=== PATIENT | male | born 1940 | race Caucasian/White ===

== ENCOUNTER → 2017-10-15 16:14 | Outpatient (CLI) | payer MEDICARE, OTHER, SELFPAY ==
--- NOTE | 2017-10-15 16:23 | DI.MRI.S_ITS ---
PROCEDURE: MR LUMBAR SPINE WO CON INDICATIONS: LBP with Right LE Pain TECHNIQUE: Noncontrast sagittal T1 spin echo and T2 fast echo, sagittal STIR, axial T1 and T2 fast spin echo through the lumbar spine. In cases with scoliosis, additional coronal T2 fast spin echo may be performed. COMPARISON: None. FINDINGS: Image quality: Excellent. Alignment and Curvature: Grade 1 retrolisthesis of L1 on L2 and L2-L3 as well as L3 on L4. Bone Marrow: Marrow is of normal overall signal. Minimal anterior wedging of the T12 vertebral body which could be physiologic no associated marrow edema. No acute vertebral body compression fractures. Spinal Cord: Conus medullaris terminates at the L1 level. Visualized cord demonstrates normal signal and size. Paraspinous Soft Tissues: No paravertebral masses. Presumed subcentimeter T2 hyperintense left renal cysts although technically indeterminate. L1-L2: Broad-based posterior disc bulge and bilateral facet arthropathy. Mild canal narrowing. Mild left and severe right foraminal stenosis. L2-L3: Broad-based posterior disc bulge bilateral facet arthropathy. Moderate canal narrowing. Moderate left and severe right foraminal stenosis. L3-L4: Broad-based posterior disc bulge and bilateral facet arthropathy. Hypertrophy of the ligamentum flavum is also noted and there is moderate to severe canal stenosis. Moderate left foraminal narrowing. Severe right foraminal stenosis. L4-L5: Is broad-based posterior disc bulge bilateral facet arthropathy. Ligamentum flavum hypertrophy and there is moderate to severe canal stenosis. Moderate bilateral foraminal narrowing L5-S1: Broad-based posterior disc bulge and bilateral facet arthropathy. Mild to moderate canal narrowing. Severe left and mild right foraminal stenoses IMPRESSION: Grade 1 retrolisthesis of L1 on L2, L2 on L3 and L3 on L4. Wzjhefms-yc-[id number] L3-L4 and L4-L5 canal stenoses. Diffuse, bilateral foraminal stenoses as detailed above by spinal level. Dictated by: Giancarlo Schofield M.D. on 10/17/2017 at 9:32 Approved by: Giancarlo Schofield M.D. on 10/17/2017 at 9:49
--- NOTE | 2017-10-15 16:23 | DI.MRI.S_ITS ---
PROCEDURE: MR HIP RT WO CON INDICATIONS: Right groin pain with hip flexor weakness TECHNIQUE: Noncontrast coronal T1 spin echo and STIR through the bony pelvis. Coronal and axial T2 fast spin echo with fat saturation, sagittal T1 spin echo, and oblique axial T2 fast spin echo with fat saturation through the hip. COMPARISON: [facility], RG, XR HIP 2V RIGHT, 08/19/2017, 9:24. FINDINGS: Image quality: Excellent. Bones and joints: Bone marrow of the pelvic ring and proximal femurs show normal signal throughout. No intraosseous lesions or fractures. No avascular necrosis of the femoral heads. The visualized lower lumbar spine appears normally aligned. Tendons and ligaments: The gluteus medius and minimus tendons appear intact, without associated muscle atrophy. The nearby proximal iliotibial band also appears intact. The iliopsoas tendon appears intact, without adjacent bursal fluid collections or evidence for impingement syndrome. The origin of the hamstring tendon is intact at the ischial tuberosity, as well as the associated sacrotuberous ligament. The straight and reflected heads of the rectus femoris muscle origin appear intact, as well as the conjoint tendon. The ligamentum teres appears intact where visualized. Labrum and cartilage: The acetabular labrum appears intact in the absence of intra-articular contrast. Cartilage surface of the femoral head appears of mildly reduced thickness slightly greater on the right than the left. The alpha angle of the femur is within normal limits at less than 55 degrees. Soft tissues: Visualized muscles demonstrate normal bulk and internal signal. Quadratus femoris muscle demonstrates no internal edema to suggest ischiofemoral impingement. The proximal sciatic neurovascular bundle appears normal adjacent to the hamstring tendons. No free pelvic fluid. Bladder wall thickness is normal. Genitourinary structures and bowel loops appear normal where visualized. IMPRESSION: Mild bilateral hip joint osteoarthritis, slightly greater on the right than the left. No joint effusion or inflammatory edema related to degenerative osteoarthritis is found bilaterally. No impingement on the lumbar plexus is identified by inflammation or mass. Dictated by: Fady Nelson M.D. on 10/17/2017 at 11:51 Approved by: Fady Nelson M.D. on 10/17/2017 at 11:52
== END ==
PROVIDERS: PCP Family Medicine; Visit Provider Physical Medicine & Rehabilitation
DX: M54.5 Low back pain (principal); M79.604 Pain in right leg; M48.061 Spinal stenosis, lumbar region without neurogenic claudication
CPT/HCPCS: 72148; 73721

== ENCOUNTER 2017-11-06 14:20 | Outpatient (CLI) | payer MEDICARE, OTHER, SELFPAY ==
[2017-11-06] VITALS (9 sets, daily range): BP systolic 90–118; BP diastolic 57–76; PULSE 59–68; RESP 16–18; TEMP 36.8; O2SAT 95–99
--- NOTE | 2017-11-06 14:22 | DI.RAD.S_ITS ---
PROCEDURE: PAIN L/S TRANSFORAMINAL INJECT INDICATIONS: L2-3 TRANSFORAMINAL ES FINDINGS: Fluoroscopic spot filming was performed to verify placement of spinal needles at the L2-3 level(s), as labeled on the films. Appropriate location(s) of the needle tip(s) was confirmed by injection of iodinated contrast. IMPRESSION: Intraoperative imaging for injection of the right L2-3 level Dictated by: Grant Copeland M.D. on 11/06/2017 at 16:51 Approved by: Grant Copeland M.D. on 11/06/2017 at 16:52
--- NOTE | 2017-11-06 15:30 | PM.CN ---
History of Present Illness Chief complaint: LUMBAR REGION RADICULOPATHY PFSH Social History Smoking Status: Former smoker (Quit in the 's) Meds Home Medications Medication Instructions Recorded Confirmed Type aspirin 81 mg tablet,delayed 81 mg PO DAILY 10/03/17 10/03/17 History release atorvastatin 40 mg tablet 40 mg PO DAILY 10/03/17 10/03/17 History calcium phosphate-vitamin D2 100 tab PO tab 10/03/17 10/03/17 History mg calcium-100 unit chewable tablet celecoxib 200 mg capsule 200 mg PO DAILY 10/03/17 10/03/17 History cetirizine 10 mg capsule PO cap 10/03/17 10/03/17 History diclofenac 1 % topical gel 2 gram TOP QID 10/03/17 10/03/17 History fluticasone 50 mcg/actuation nasal 2 spray NASAL DAILY 10/03/17 10/03/17 History spray,suspension lisinopril 40 mg tablet 40 mg PO DAILY 10/03/17 10/03/17 History metoprolol succinate ER 25 mg 25 mg PO DAILY 10/03/17 10/03/17 History tablet,extended release 24 hr omeprazole 20 mg capsule,delayed 20 mg PO BID cap 10/03/17 10/03/17 History release sertraline 25 mg tablet 25 mg PO DAILY 10/03/17 10/03/17 History tolterodine ER 4 mg 4 mg PO DAILY 10/03/17 10/03/17 History capsule,extended release 24 hr triamcinolone acetonide 0.1 % 1 applictn TOP DAILY 10/03/17 10/03/17 History lotion warfarin 5 mg tablet 7.5 mg PO DAILY tab 10/03/17 10/03/17 History Allergies Allergy/AdvReac Type Severity Reaction Status Date / Time famotidine [From Pepcid] AdvReac Depression Verified 10/03/17 15:12 oxycodone AdvReac Hallucinati Verified 10/03/17 15:12 ng
[2017-11-06] MEDS: MIDAZOLAM 5 MG/5 ML VIAL IV (15:52)
[2017-11-06] MEDS: methylPREDNISolone acetate 80 MG/ML VIAL INJ (16:00)
[2017-11-06] MEDS: IOPAMIDOL 15 ML VIAL 3 ML INJ (16:00)
[2017-11-06] MEDS: BUPIVACAINE 0.25% (PF) VIAL 2 ML INJ (16:00)
[2017-11-06] MEDS: DEXAMETHASONE 10 MG/ML VIAL 20 MG INJ (16:00)
--- NOTE | 2017-11-06 16:12 | P.PCN_ITS ---
Procedures Date/Time Date of procedure: 11/06/17 Time of procedure: 16:12 General Procedure description: PREOP DIAGNOSIS 1. FORMAINAL STENOSIS WITH LE SYMPTOMS, POST OP DIAGNOSIS 1. FORMAINAL STENOSIS WITH LE SYMPTOMS, PROCEDURES 1. FLUOROSCOPICALLY GUIDED CONTRAST CONTROLLED TRANSFORAMINAL EPIDURAL STEROID INJECTION - RIGHT L2/3 TFESI PHYSICIAN: Valentín Baca, DO INDICATIONS [place] is referred by Dr. Infante for treatment of Foraminal Stenosis with Right LE Symptoms FINDINGS Foraminal Nerve Root Compression secondary to disc disease and facet hypertrophy DESCRIPTION OF PROCEDURE Following denial of allergy and review of potential side effects and complications, including, but not necessarily limited to, infection, allergic reaction, local tissue breakdown, stroke, temporary or permanent nerve injury, paralysis, and possible , the patient indicated that the patient understood and agreed to proceed. An informed consent document was signed by the patient, witnessed by a nurse, and placed in the patient's chart. Additionally, other treatment options including medications, modalities, and physical therapy were reviewed with the patient. After review of previous anaesthesic history and IV conscious sedation the patient was deemed safe to proceed with todays procedure with IV conscious sedation as ASA class II designation. Safety time-out was performed to confirm patient ID, procedure to be performed and site of procedure. IV sedation was accomplished with a combination of 3mg was administered by the RN after DO order , titrated to patient comfort during the course of the procedure while the patient remained responsive to all verbal commands In the prone position following sterile prep and drape of the lumbar region, the right L2/3 posterior neuroforamen was identified fluoroscopically. The skin was anesthetized via a 25-gauge 1.5-inch needle with 1% lidocaine solution. At this point, a 25-gauge 3.5-inch spinal needle was atraumatically introduced and advanced under fluoroscopic guidance through the posterior right L2/3 neuroforamen to approximately the anterior aspect of the canal. Depth was confirmed on lateral view. Following negative aspiration, injection of approximately 1.5 cc of Isovue 200 under live fluoroscopy in the AP view confirmed excellent flow along the nerve root, into the epidural space without vascular or intrathecal uptake observed Radiological data, including multiple fluoroscopic views of the lumbosacral spine, reveal a spinal needle at the right L2/3 posterior neuroforamen. Subsequent views show flow of contrast material flowing superiorly and inferiorly along the nerve root confirming epidural flow. Subsequently, a test dose of 1.5 cc of 1% lidocaine solution was administered and patient was observed for signs or symptoms of complications, including abdominal pain, shortness of breath, bilateral upper or lower extremity weakness , nausea and vomiting, prior to steroid injection. At this point, a total of 3 cc or 20 mg of dexamethasone and 80mg Depo medrol was injected without incident. The procedure tolerated the procedure well without signs or symptoms of complications prior to transfer to the recovery area continued monitoring without incident.The patient was then transferred to the recovery area where they were observed for an appropriate time after the injection. The patient reported a VAS score of 7 prior to the procedure and a post- procedure VAS of 0. Total Fluoroscopy Time: 17.3 seconds Total Conscious Sedation Time: 24min POST OP INSTRUCTIONS The patient was provided a Pain Log to continue to record their response to the target-specific procedure prior to follow-up visit with their referring physician. Additionally, specific post-injection care instructions and a contact number to our office were provided if concerns arise regarding possible complications associated with the procedure are suspected. Valentín Baca DO Complications: none
== END 2017-11-06 16:43 | disposition home or self-care (01) ==
PROVIDERS: PCP Family Medicine; Visit Provider Physical Medicine & Rehabilitation
DX: M48.061 Spinal stenosis, lumbar region without neurogenic claudication (principal); M51.16 Intervertebral disc disorders with radiculopathy, lumbar region
CPT/HCPCS: 64483; 99152; J1040; J1100; J2250

== ENCOUNTER 2018-06-05 10:24 | Day surgery (SDC) | payer MEDICARE, OTHER, SELFPAY ==
[2018-05-01 09:25] VITALS: BMI 39.7
[2018-06-05] VITALS (7 sets, daily range): BP systolic 111–145; BP diastolic 55–90; PULSE 55–68; RESP 11–96; TEMP 36.8–37; O2SAT 97–99; BMI 39.7
[2018-06-05] MEDS: LACTATED RINGERS 1,000 ML 42 ML IV (12:16)
[2018-06-05] MEDS: CEFAZOLIN 2 GM/100 ML FROZ.PIGGY IV (13:40)
--- NOTE | 2018-06-05 14:07 | SUR.OPER ---
Supine on padded OR bed, head on pillow,left arm drapped free on black arm table, right arm secured on padded arm boards at <90 degrees abduction, legs uncrossed, safety belt at thigh, tape over blanket over lower legs.
[2018-06-05] MEDS: BUPIVACAINE 0.5% W/ EPI (PF) VIAL 30 ML INJ (14:18)
--- NOTE | 2018-06-05 14:48 | PM.OP.1 ---
Operative Date/Time/Diagnoses Date of procedure: 06/05/18 Time of procedure: 14:00 Pre-op diagnosis: Right basal thumb arthritis Post-op diagnosis: same Procedure & Clinicians Procedure: Right basal thumb arthroplasty Same procedure as scheduled: Yes Indications: Basal thumb arthritis Surgeon: Talib Hayes Human Services Assistant: Zarina Henry Anesthesia Type: General and Peripheral nerve block Operative Notes Closure Type: primary Specimen(s): none sent Applied: implant(s) Estimated Blood Loss (mL): 0 Tourniquet time (min): 40 Procedure in detail: On date of service, the patient was met in the holding area. The operative site was signed and witnessed by the OR staff. The surgery was once again discussed with patient, and any remaining questions Were answered fully. Patient was taken back to the operating theater and placed on the operating table in a supine position. Great care was taken to ensure that all bony prominences were properly padded. A well-padded tourniquet was placed up along the upper extremity. A timeout was performed verifying patient's name, procedure, and operative site. The arm was prepped and draped in the normal sterile fashion. An Esmarch was used to exsanguinate the limb and the tourniquet was turned up to 250 mm mercury. A 15 blade was used to incise the skin only in a dorsal radial position. Pickups and tenotomy 3 used to dissect down through the fascial tissue. Great care was taken to ensure that the branches off the superficial radial nerve root identified and protected. Next, an interval was made between EPB and APL. The recurrent branch of the radial artery was identified and protected. The capsular tissues surrounding the basal joints was opened and released around the trapezium and a 360? fashion. This gave us good visualization of the basal joint as well as the trapezial scaphoid joint. Significant arthritis at the basal joints but no sign of any arthritis at the trapezial scaphoid joint. Next the trapezium was removed as well as any potential osteophytes. The wound was then copiously irrigated to remove any remaining bony fragments. 2 drill holes were made. One in the base of the first metacarpal and one in the base of the second metacarpal. C-arm was brought in to verify positioning of the K wires. A strand of labral tape was folded back Onto itself. The 2 strands of labral tape as well as the strip of FCR was secured in the bone tunnel in the second metacarpal with a screw. This was then brought over to the first metacarpal and anchored into the metacarpal using the swivel lock screw. This provided a secure suspension plasty of the thumb, as well as recreating the beak ligament. The wound was irrigated once again. A thick capsular closure was performed using 2-0 Ethibond. The rest of the wound was closed in a layered fashion. The hand was then cleaned, dried, and dressed. Patient was placed into a thumb spica splint. Patient was taken back to the PACU in stable condition. Complications: none Condition: stable Disposition: PACU Plan for aftercare: Patient will be in a splint for 2 weeks. After 2 weeks patient can be converted to a removable brace. No restrictions to wrist or basal thumb range of motion at 2 weeks.
[2018-06-05] MEDS: HYDROCODONE/ACET 5/325 TABLET 1 TAB PO (15:10)
--- NOTE | 2018-06-05 16:07 | SUR.PHASEII ---
brought in, d/c instructions discussed, both voiced an understanding, dressing to r hand c/d/i.. pt dressed when ready and left when ready and in stable condition.
== END 2018-06-05 16:00 | disposition home or self-care (01) ==
PROVIDERS: PCP Family Medicine; Visit Provider Orthopaedic Surgery
PROC: (CPT 26535; principal; 2018-06-05 13:00)
DX: M18.10 Unilateral primary osteoarthritis of first carpometacarpal joint, unspecified hand (principal); G47.33 Obstructive sleep apnea (adult) (pediatric); E66.01 Morbid (severe) obesity due to excess calories; I10 Essential (primary) hypertension; Z68.39 Body mass index [BMI] 39.0-39.9, adult
CPT/HCPCS: 25447; 25310; J0690; J2250; J2704

== ENCOUNTER → 2019-05-26 14:34 | Outpatient (CLI) | payer MEDICARE, OTHER, SELFPAY ==
--- NOTE | 2019-05-26 14:38 | DI.RAD.S_ITS ---
PROCEDURE: XR HIP W PEL IF DONE LT MIN 4V INDICATIONS: left hip pain TECHNIQUE: AP pelvis with lateral view(s) of the bilateral hip(s). COMPARISON: [facility], MR, MR HIP RT WO CON, 10/15/2017, 16:39. [facility], RG, XR HIP 2V RIGHT, 08/19/2017, 9:24. FINDINGS: Bones: No acute fractures or dislocations. Degenerative changes of the bilateral hip and lower lumbar spine. Small subchondral lucency adjacent to the right greater trochanter which was suggested on comparison MRI. This is likely chronic in etiology. Pelvic ring appears intact. No suspicious bony lesions. Soft tissues: The visualized bowel gas pattern is normal. No suspicious soft tissue calcifications. IMPRESSION: Bilateral hip osteoarthrosis. Lower lumbar spondylosis. Dictated by: Martin Sam M.D. on 05/26/2019 at 18:09 Approved by: Martin Sam M.D. on 05/26/2019 at 18:13
== END ==
PROVIDERS: PCP Family Medicine; Referring Provider Physical Medicine & Rehabilitation; Visit Provider Physical Medicine & Rehabilitation
DX: M25.552 Pain in left hip (principal); M16.0 Bilateral primary osteoarthritis of hip; M47.816 Spondylosis without myelopathy or radiculopathy, lumbar region
CPT/HCPCS: 73522

== ENCOUNTER → 2019-06-03 11:42 | Outpatient (CLI) | payer MEDICARE, OTHER, SELFPAY ==
--- NOTE | 2019-06-03 | DI.CT.S_ITS ---
PROCEDURE: CT SINUS SCREEN WO CON INDICATIONS: Acute recurrent sinusitis TECHNIQUE: Noncontrast 3.0 mm axial images acquired from the frontal sinuses to the mid-sella, with coronal and sagittal reformats. For radiation dose reduction, the following was used: automated exposure control, adjustment of mA and/or kV according to patient size. COMPARISON: None. FINDINGS: Image quality: Excellent. Maxillary Sinuses: No bony remodeling or destruction. Sinuses are clear. Ethmoid Air Cells: No bony remodeling or destruction. Sinuses are clear. Sphenoid Sinuses: No bony remodeling or destruction. Sinuses are clear. Frontal Sinuses: No bony remodeling or destruction. Sinuses are clear. Ostiomeatal Complexes: Ostiomeatal complexes are patent. No Sondra cells. Miscellaneous: Visualized intra-orbital contents are normal. There is a small right-sided liane bullosa. There is mild rightward nasal septal deviation. IMPRESSION: No significant active paranasal sinus disease is seen. Mild rightward nasal septal deviation. Dictated by: Matias Ordaz M.D. on 06/03/2019 at 12:21 Approved by: Matias Ordaz M.D. on 06/03/2019 at 12:22
== END ==
PROVIDERS: PCP Family Medicine; Referring Provider Otolaryngology; Visit Provider Otolaryngology
DX: J01.91 Acute recurrent sinusitis, unspecified (principal); J32.8 Other chronic sinusitis; J34.2 Deviated nasal septum; M54.17 Radiculopathy, lumbosacral region; M54.16 Radiculopathy, lumbar region; M51.9 Unspecified thoracic, thoracolumbar and lumbosacral intervertebral disc disorder; M99.89 Other biomechanical lesions of abdomen and other regions
CPT/HCPCS: 70486; 99213

== ENCOUNTER → 2019-08-31 11:36 | Outpatient (CLI) | payer MEDICARE, OTHER, SELFPAY ==
[2019-09-01 11:06] LABS: COVID19 Sendout NOT DETECTED
== END ==
PROVIDERS: PCP Family Medicine; Visit Provider Registered Nurse
DX: Z01.818 Encounter for other preprocedural examination (principal)
CPT/HCPCS: 87635

== ENCOUNTER 2019-09-03 12:04 | Outpatient (CLI) | payer MEDICARE, OTHER, SELFPAY ==
[2019-09-03] VITALS (9 sets, daily range): BP systolic 111–159; BP diastolic 55–89; PULSE 59–98; RESP 14–16; TEMP 36.8; O2SAT 95–100
--- NOTE | 2019-09-03 12:05 | DI.RAD.S_ITS ---
PROCEDURE: PAIN L/S TRANSFORAMINAL INJECT INDICATIONS: SPONDYLOSIS FINDINGS: Fluoroscopic spot filming was performed to verify placement of spinal needles at the left L3-4 neural foramen level(s), as labeled on the films. Appropriate location(s) of the needle tip(s) was confirmed by injection of iodinated contrast. IMPRESSION: Successful left-sided L3-4 neural foramen needle tip localization for epidural steroid injection. Dictated by: Fady Nelson M.D. on 09/03/2019 at 15:12 Approved by: Fady Nelson M.D. on 09/03/2019 at 15:12
[2019-09-03] MEDS: BETAMETHASONE 30 MG/5 ML MDV 6 MG INJ (13:37)
[2019-09-03] MEDS: IOPAMIDOL 15 ML VIAL 3 ML INJ (13:38)
[2019-09-03] MEDS: DEXAMETHASONE 10 MG/ML VIAL 20 MG INJ (13:39)
[2019-09-03] MEDS: BUPIVACAINE 0.25% (PF) VIAL 2 ML INJ (13:39)
[2019-09-03] MEDS: MIDAZOLAM 5 MG/5 ML VIAL IV (13:40)
--- NOTE | 2019-09-03 13:45 | PM.PROC.1 ---
Procedures Date/Time Date of procedure: 09/03/19 Time of procedure: 13:45 General Procedure description: PROVIDER: Valentín Baca DO Operative Note PREOP DIAGNOSIS 1. FORAMINAL STENOSIS WITH LE SYMPTOMS, POST OP DIAGNOSIS 1. FORAMINAL STENOSIS WITH LE SYMPTOMS, PROCEDURES 1. FLUOROSCOPICALLY GUIDED CONTRAST CONTROLLED TRANSFORAMINAL EPIDURAL STEROID INJECTION - LEFT L3/4 TFESI SURGEON: Valentín Baca DO INDICATIONS [place] is referred by Dr. Mar for treatment of Foraminal Stenosis with left LE Symptoms FINDINGS Foraminal Nerve Root Compression secondary to disc disease and facet hypertrophy DESCRIPTION OF PROCEDURE Following review of allergy and review of potential side effects and complications, including, but not necessarily limited to, infection, allergic reaction, local tissue breakdown, stroke, temporary or permanent nerve injury, paralysis, and possible , the patient indicated that the patient understood and agreed to proceed. An informed consent document was signed by the patient, witnessed by a nurse, and placed in the patient's chart. Additionally, other treatment options including medications, modalities, and physical therapy were reviewed with the patient. After review of previous anaesthesic history and IV conscious sedation the patient was deemed safe to proceed with todays procedure with IV conscious sedation as ASA class II designation. Safety time-out was performed to confirm patient ID, procedure to be performed and site of procedure. IV sedation was accomplished with a combination of 2mg of Versed was administered by the RN after DO order, titrated to patient comfort during the course of the procedure while the patient remained responsive to all verbal commands In the prone position following sterile prep and drape of the lumbar region, the left L3/4 posterior neuroforamen was identified fluoroscopically. The skin was anesthetized via a 25-gauge 1.5-inch needle with 1% lidocaine solution. At this point, a 25-gauge 3.5-inch spinal needle was atraumatically introduced and advanced under fluoroscopic guidance through the posterior left L3/4 neuroforamen to approximately the anterior aspect of the canal. Depth was confirmed on lateral view. Following negative aspiration, injection of approximately 1.5 cc of Isovue 200 under live fluoroscopy in the AP view confirmed excellent flow along the nerve root, into the epidural space without vascular or intrathecal uptake observed Radiological data, including multiple fluoroscopic views of the lumbosacral spine, reveal a spinal needle at the left L3/4 posterior neuroforamen. Subsequent views show flow of contrast material flowing superiorly and inferiorly along the nerve root confirming epidural flow. Subsequently, a test dose of 1.5 cc of 1% lidocaine solution was administered and patient was observed for two minutes for signs or symptoms of complications, including abdominal pain, shortness of breath, bilateral upper or lower extremity weakness, nausea and vomiting, prior to steroid injection. At this point, a total of 3cc or 20mg of dexamethasone and 6mg betamethasone was injected without incident. The patient tolerated the procedure well without signs or symptoms of complications prior to transfer to the recovery area continued monitoring without incident. The patient was then transferred to the recovery area where they were observed for an appropriate time after the injection. The patient reported a VAS score of 7 prior to the procedure and a post-procedure VAS of 0. Total Fluoroscopy Time: 10 seconds Total Conscious Sedation Time: 24min POST OP INSTRUCTIONS The patient was provided a Pain Log to continue to record their response to the target-specific procedure prior to follow-up visit with their referring physician. Additionally, specific post-injection care instructions and a contact number to our office were provided if concerns arise regarding possible complications associated with the procedure are suspected. Valentín Baca, Complications: none
--- NOTE | 2019-09-03 13:51 | PC.NURSE ---
able transfer from table to wc safely, transported to post procedure room, report to chata carney
== END 2019-09-03 14:15 | disposition home or self-care (01) ==
LOC: RAD 12:04
PROVIDERS: PCP Family Medicine; Referring Provider Physical Medicine & Rehabilitation; Visit Provider Physical Medicine & Rehabilitation
DX: M48.061 Spinal stenosis, lumbar region without neurogenic claudication (principal); M51.16 Intervertebral disc disorders with radiculopathy, lumbar region
CPT/HCPCS: 64483; 99152; J0702; J1100; J2250; J3010

== ENCOUNTER → 2020-06-20 13:04 | Outpatient (CLI) | payer MEDICARE, OTHER, SELFPAY ==
[2020-06-20 15:59] LABS: COVID19 -Nasal RAPID Negative (Negative)
== END ==
PROVIDERS: PCP Family Medicine; Visit Provider Physical Medicine & Rehabilitation
DX: Z20.822 Contact with and (suspected) exposure to COVID-19 (principal)
CPT/HCPCS: 87635; C9803

== ENCOUNTER 2020-06-21 12:18 | Outpatient (CLI) | payer MEDICARE, OTHER, SELFPAY ==
[2020-06-21] VITALS (9 sets, daily range): BP systolic 113–163; BP diastolic 55–77; PULSE 58–65; RESP 15–24; TEMP 36.8; O2SAT 93–96
--- NOTE | 2020-06-21 12:22 | DI.RAD.S_ITS ---
PROCEDURE: PAIN L/S TRANSFORAM INJECT MILDRED COMPARISON: None. INDICATIONS: SPONDYLOSIS FINDINGS: A single needle tip is localized over the L3-4 right-sided neural foramen for transforaminal epidural injection. IMPRESSION: Successful needle tip localization for right-sided L3-4 epidural steroid injection. Dictated by: Fady Nelson M.D. on 06/21/2020 at 13:45 Approved by: Fady Nelson M.D. on 06/21/2020 at 13:46
[2020-06-21] MEDS: fentaNYL 100 MCG/2 ML INJ 50 MCG IV (13:10)
[2020-06-21] MEDS: IOPAMIDOL 15 ML VIAL 3 ML INJ (13:15)
[2020-06-21] MEDS: BUPIVACAINE 0.25% (PF) VIAL 2 ML INJ (13:15)
[2020-06-21] MEDS: MIDAZOLAM 5 MG/5 ML VIAL IV (13:15)
[2020-06-21] MEDS: BETAMETHASONE 30 MG/5 ML MDV 12 MG INJ (13:15)
[2020-06-21] MEDS: DEXAMETHASONE 10 MG/ML VIAL 20 MG INJ (13:19)
--- NOTE | 2020-06-21 13:30 | P.PCN_ITS ---
Date/Time/Diagnoses Date of procedure: 06/21/20 Time of procedure: 13:30 Pre-procedure diagnosis: 1. FORAMINAL STENOSIS WITH LE SYMPTOMS Post-procedure diagnosis: same Procedure Notes Procedure: 1. FLUOROSCOPICALLY GUIDED CONTRAST CONTROLLED TRANSFORAMINAL EPIDURAL STEROID INJECTION - BILATERAL L3/4 TFESI Indications: Aramis is referred by Dr. Mar for treatment of Foraminal Stenosis with bilateral LE Symptoms Physician: Valentín Baca Total Fluoroscopy time (seconds): 16 Total sedation minutes: 13 Complications: none Procedure in detail & Post-procedure care: FINDINGS Foraminal Nerve Root Compression secondary to disc disease and facet hypertrophy DESCRIPTION OF PROCEDURE Following review of allergy and review of potential side effects and complications, including, but not necessarily limited to, infection, allergic reaction, local tissue breakdown, stroke, temporary or permanent nerve injury, paralysis, and possible , the patient indicated that the patient understood and agreed to proceed. An informed consent document was signed by the patient, witnessed by a nurse, and placed in the patient's chart. Additionally, other treatment options including medications, modalities, and physical therapy were reviewed with the patient. After review of previous anaesthesic history and IV conscious sedation the patient was deemed safe to proceed with today?s procedure with IV conscious sedation as ASA class II designation. Safety time-out was performed to confirm patient ID, procedure to be performed and site of procedure. IV sedation was accomplished with a combination of 3mg of Versed and 50mcg of Fentanyl was administered by the RN after DO order, titrated to patient comfort during the course of the procedure while the patient remained responsive to all verbal commands In the prone position following sterile prep and drape of the lumbar region, the right L5/S1 posterior neuroforamen was identified fluoroscopically. The skin was anesthetized via a 25-gauge 1.5-inch needle with 1% lidocaine solution. At this point, a 25-gauge 3.5-inch spinal needle was atraumatically introduced and advanced under fluoroscopic guidance through the posterior right L5/S1 neuroforamen to approximately the anterior aspect of the canal. Depth was confirmed on lateral view. Following negative aspiration, injection of approximately 1.5cc of Isovue 200 under live fluoroscopy in the AP view confi rmed excellent flow along the nerve root, into the epidural space without vascular or intrathecal uptake observed Radiological data, including multiple fluoroscopic views of the lumbosacral spine, reveal a spinal needle at the L5/S1 posterior neuroforamen. Subsequent views show flow of contrast material flowing superiorly and inferiorly along the nerve root confirming epidural flow. Subsequently, a test dose of 1.5cc of 1% lidocaine solution was administered and patient was observed for two minutes for signs or symptoms of complications, including abdominal pain, shortness of breath, bilateral upper or lower extremity weakness, nausea and vomiting, prior to steroid injection. At this point, a total of 3cc or 20mg of dexamethasone and 6mg betamethasone was injected without incident. Attention was then refocused to the left L5/S1 level where the identical procedure was replicated. The procedure tolerated the procedure well without signs or symptoms of complications prior to transfer to the recovery area continued monitoring without incident. The patient was then transferred to the recovery area where they were observed for an appropriate time after the injection. The patient reported a VAS score of 7 prior to the procedure and a post-procedure VAS of 0. POST OP INSTRUCTIONS The patient was provided a Pain Log to continue to record their response to the target-specific procedure prior to follow-up visit with their referring physician. Additionally, specific post-injection care instructions and a contact number to our office were provided if concerns arise regarding possible complications associated with the procedure are suspected.
--- NOTE | 2020-06-21 17:08 | PC.NURSE ---
Pt waiting for discharge for extended amount of time. Vital sign and discharge criteria met at 1355 aside from BLE strength and ability to ambulate. Dr Baca at chairside multiple times to assist in attempts to stand. Pt too weak from 1355 until discharge at 1600. Per pt and , walkers and ability to move around at home is available. Pt states this is his baseline weakness and difficulty of standing up from sitting position. Pt able to use wheelchair as walker with Dr Baca. Able to void in bathroom prior to DC. in car and pt safe for discharge.
== END 2020-06-21 16:00 | disposition home or self-care (01) ==
LOC: RAD 12:22
PROVIDERS: PCP Family Medicine; Referring Provider Physical Medicine & Rehabilitation; Visit Provider Physical Medicine & Rehabilitation
DX: M48.061 Spinal stenosis, lumbar region without neurogenic claudication (principal); M51.16 Intervertebral disc disorders with radiculopathy, lumbar region
CPT/HCPCS: 64483; 99152; J0702; J1100; J2250; J3010

== ENCOUNTER → 2020-07-29 13:57 | Outpatient (CLI) | payer MEDICARE, OTHER, SELFPAY ==
--- NOTE | 2020-07-29 13:59 | DI.RAD.S_ITS ---
PROCEDURE: XR LUMBAR SPINE MIN 4V INDICATIONS: BACK PAIN TECHNIQUE: 5 views of the lumbar spine were acquired, including bilateral oblique views COMPARISON: None. FINDINGS: Bones: 5 nonrib-bearing vertebrae are present. There is moderate leftward curvature of the lumbar spine midportion. Pars interarticularis are not well seen. Multilevel disc space narrowing and endplate osteophyte formation. Multilevel facet hypertrophy throughout the mid and lower lumbar spine. Mild kyphosis within the lower thoracic spine. Mild grade 1 retrolisthesis of L1 on L2, L2 on L3, and L3 on L4. No vertebral body compression fractures. No suspicious bony lesions. Soft tissues: Overlying bowel gas pattern is normal. No suspicious soft tissue calcifications. IMPRESSION: 1. Multilevel degenerative disc and facet disease. 2. No definite pars defects. 3. No acute fracture. No osseous lesion. If symptoms and/or clinical suspicion for pathology persist, further assessment with repeat, or advanced imaging (e.g., CT, MRI, or bone scan) may be helpful for further assessment. Dictated by: Violetta Cloud M.D. on 07/29/2020 at 16:55 Approved by: Violetta Cloud M.D. on 07/29/2020 at 16:56
== END ==
PROVIDERS: PCP Family Medicine; Referring Provider Physical Medicine & Rehabilitation; Visit Provider Physical Medicine & Rehabilitation
DX: M51.16 Intervertebral disc disorders with radiculopathy, lumbar region (principal); M25.859 Other specified joint disorders, unspecified hip
CPT/HCPCS: 72110; 99213

== ENCOUNTER → 2021-01-16 13:25 | Outpatient (CLI) | payer MEDICARE, OTHER, SELFPAY ==
--- NOTE | 2021-01-16 | DI.RAD.S_ITS ---
PROCEDURE: XR KNEE LT 3V INDICATIONS: Pain in left knee TECHNIQUE: 3 views of the knee were acquired. COMPARISON: None. FINDINGS: Bones: No fractures or dislocations. Moderate tricompartmental osteoarthritis is seen more prominent in medial femoral tibial compartment. No suspicious bony lesions. Soft tissues: No joint effusion. No suspicious soft tissue calcifications. IMPRESSION: Moderate tricompartmental osteoarthritis more prominent in medial femoral tibial compartment. No fracture or dislocation. No significant joint effusion. Dictated by: Paul Ricardo M.D. on 01/16/2021 at 14:53 Approved by: Paul Ricardo M.D. on 01/16/2021 at 14:54
== END ==
PROVIDERS: PCP Internal Medicine; Referring Provider Physician Assistant; Visit Provider Physician Assistant
DX: M25.562 Pain in left knee (principal); M17.12 Unilateral primary osteoarthritis, left knee
CPT/HCPCS: 73562

== ENCOUNTER → 2021-05-23 12:24 | Outpatient (CLI) | payer MEDICARE, OTHER, SELFPAY ==
--- NOTE | 2021-05-23 | DI.RAD.S_ITS ---
PROCEDURE: XR ABDOMEN MIN 2V INDICATIONS: Abd Pain/Constipation/Diarrhea TECHNIQUE: 2 views of the abdomen were acquired. COMPARISON: None. FINDINGS: Surgical changes and devices: Median sternotomy. Bowel: No pneumoperitoneum. Moderate diffuse colonic stool. The bowel gas pattern is otherwise normal. Soft tissues: No masses; visualized solid organ contours appear normal in size. No suspicious abdominal calcifications. Bones: No suspicious bony abnormalities. IMPRESSION: Moderate diffuse colonic stool. No evidence of bowel obstruction. Dictated by: Violetta Cloud M.D. on 05/23/2021 at 14:12 Approved by: Violetta Cloud M.D. on 05/23/2021 at 14:12
== END ==
PROVIDERS: PCP Internal Medicine; Referring Provider Internal Medicine Gastroenterology; Visit Provider Internal Medicine Gastroenterology
DX: R10.9 Unspecified abdominal pain (principal); K59.00 Constipation, unspecified; R19.7 Diarrhea, unspecified; R19.8 Other specified symptoms and signs involving the digestive system and abdomen
CPT/HCPCS: 74019

== ENCOUNTER → 2022-05-03 09:52 | Outpatient (CLI) | payer MEDICARE, OTHER, SELFPAY ==
--- NOTE | 2022-05-03 | DI.RAD.S_ITS ---
PROCEDURE: FL BARIUM SWALLOW W SPEECH INDICATIONS: DYSPHAGIA COMPARISON: None. TECHNIQUE: Examination was conducted in conjunction with speech pathology per standard protocol. In the lateral projection, filming was performed of the patient swallowing. AP projection filming may also be performed with patient swallowing. COMPARISON: FINDINGS: Function: The oral preparatory phase appears normal, with proper containment. The subsequent oral propulsive phase, pharyngeal phase, and esophageal phase of swallowing also appear normal with all proffered substances. No laryngotracheal penetration or aspiration. There is vallecular pooling throughout the exam that clears with repeated swallowing. Imaging of the esophagus demonstrates residual contrast material within the esophagus versus gastroesophageal reflux. Some tertiary contractions were noted. A calibrated barium tablet passes readily through the esophagus into the stomach. Morphology: No cricopharyngeal bar is identified. No cervical esophageal webs. No Zenker's diverticulum. No strictures. IMPRESSION: No laryngeal tracheal penetration or aspiration. Contrast material imaged within the esophagus may be secondary to dysmotility or gastroesophageal reflux. Of note, please see independent report generated by the speech pathologist for further detailed specifics and characterization of the modified speech swallow study. Approved by: Rakesh Alberto M.D. on 05/03/2022 at 13:32
--- NOTE | 2022-05-03 11:30 | ST.SWALLOW ---
Visit Care Team Role Provider Type William Davis MD Primary Care Provider Non-Staff Specialty: Internal Medicine Address: [address] [place] [address], [id number] Email: Placido Souza DO Attending Provider Non-Staff Referring Provider Specialty: Family Practice Address: [address] [place] [address], [id number] Email: Modified Barium Swallow Study PAYING TELLER Modified Barium Swallow Study Start: 05/03/22 17:39 Freq: Status: Active Protocol: Document 05/03/22 17:39 ZS (Rec: 05/03/22 17:42 ZS [id number]) Modified Barium Swallow Study Total Time Visit Start Time 10:30 Visit Stop Time 11:00 Total Visit Minutes 30 Visit Information Visit Number Initial Evaluation Setting Setting Outpatient Care Patient Information Identification Type Name Patient History Aramis is an 81-year old male referred for a modified barium swallow study due to pills and solids getting stuck in his throat or moving through slowly. 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 He currently receives pain management for osteoarthristis in his hip and hand. Pt indicated larger pills will sometimes get stuck in his throat (pt pointed to mid-neck region) and solids will sometimes move slowly through his system (gestured to lower throat and chest area ). He reported a liquid wash will often help move it through. Pt added he will sometimes have phlegm build-up in his throat, though stated he is used to that and it is not of concern at this time. Subjective Observations Pt arrived on time and ambulated with use of a cane. Provided education regarding process and procedure and pt expressed understanding and agreed to participate. Patient Positioning Position View Lat-A/P Imaging Lateral View Textures Administered Trials Presented Thin Liquid via Cup,[place] Liquid via Cup,Honey Liquid via Spoon,Pudding Thick Liquid via Spoon,Regular Textures Oral Phase Source: MBSIMP (TM) (C) Bolus Specific Scoring Grid Lip Closure No Impairment (WNL) Tongue Control During Bolus Hold Mild Impairment Bolus Prep/Mastication No Impairment (WNL) Bolus Transport/Lingual Motion No Impairment (WNL) A/P Lingual Propulsion Delay No Oral Residue Mild Impairment Residue Clearing No Impairment (WNL) Nasal Regurgitation No Additional Oral Phase Observations Pt exhibited mild posterior loss of bolus during tongue hold, but no anterior loss. Mastication and a/p propulsion of bolus were WNL. Pt exhibited some pocketing of food following swallow, but cleared this with a second swallow. Pharyngeal Phase Source: MBSIMP (TM) (C) Bolus Specific Scoring Grid Delayed Initiation of Pharyngeal Swallow No Soft Palate Elevation No Impairment (WNL) Tongue Base Strength/Range of Motion Mild Impairment Residue Along the Tongue Base Yes Clearance of Residue Along Tongue Base WFL Laryngeal Elevation No Impairment (WNL) Anterior Hyoid Movement Mild Impairment Epiglottic Range of Motion No Impairment (WNL) Vallecular Residue Yes Clearance of Vallecular Residue WFL Laryngeal Vestibular Closure No Impairment (WNL) Pharyngeal Stripping Wave Mild Impairment Posterior Pharyngeal Wall Residue Yes Clearance of Posterior Pharyngeal Wall Minimal Impairment Residue Upper Esophageal Sphincter Opening Mild Impairment Residue in the Pyriform Sinuses Yes Clearance of Residue in the Pyriform WFL Sinuses Esophageal Clearance Upright Position Moderate Impairment Pharyngoesophageal Backflow Observed Yes Additional Pharyngeal Phase Observations Pharyngeal swallow triggered with head of the bolus at the posterior angle of the ramus. Base of tongue weakness observed, with wide margin between base of tongue and posterior pharyngeal wall. Additionally, pocket noted superior to hyoid and anterior to valleculae where residue accumulated during swallow and was retained following completion of swallow. Residue also observed to remain in oral cavity and in right valleculae. Base of tongue weakness in addition to pocketing resulted in a mild- moderate amount of residue following swallow. Laryngeal vestibular closure was not impaired by base of tongue weakness or reduced anterior movement of hyoid, and complete closure was achieved. No instances of aspiration or penetration observed across all trials. Pt benefitted from double swallow to clear residue to more trace levels. Additional contributor to residue in pharynx was reduced opening of UES with backflow from esophagus entering pharynx. PES backflow A/P View Textures Administered Trials Presented Thin Liquid via Cup,[place] Liquid via Cup,Honey Liquid via Spoon,Barium Tablet A/P View Observations Residue Observed Valleculae Right Esophageal Function Slowed Clearing,Poor Motility, Reverse Peristalsis Esophageal Clearance Upright Position Moderate Impairment Additional Observations Pt had significant volume of bolus in esophagus upon transition to A/P view. Cleared this with water to complete PO trials in A/P view . Barium tablet moved through rapidly. As thickness of barium increased, rate of clearance through esophagus slowed. In addition to slowed movement noted during A/P view , pt exhibited backflow through UES during lateral view PO trials across all textures. Clinical Impressions Dysphagia Type Paryngoesophageal Dysphagia Findings The pt presents with mild- moderate pharyngoesophageal dysphagia characterized by base of tongue weakness, pharyngeal residue, and slowed clearing with reverse peristalsis through UES. Pt benefitted from double swallow to clear residue, though mild -moderate residue remaining in pharynx following swallow places pt at higher risk for aspiration. Additionally, backflow through UES places pt at higher risk for irritation of vocal fold and infection should pt aspirate. Recommend referral for GI and speech therapy to target base of tongue weakness. Discussed double swallow and alternating liquids and solids with pt to improve swallow safety and comfort with oral intake. Pt expressed understanding of recommendations. Rehabilitation Potential Good Patient Appropriate for Therapy Yes Recommendations Diet Liquids Order Thin Diet Order Regular Medication Recommendation As Tolerated Aspiration Precautions Recommended Precautions Upright at 90 Degrees, Alternate Liquids/Solids, Frequent Rest Periods,Small Bites/Sips,Double Swallow Treatment Plan Therapy Recommendations Outpatient Speech Therapy Recommended Referrals GI Consult Compensatory Strategies Recommendations Sitting Upright (90 deg), Double Swallow,Small Bites and Sips,Alternate Liquids/Solids
== END ==
PROVIDERS: PCP Internal Medicine; Referring Provider Family Medicine; Visit Provider Family Medicine
DX: R13.10 Dysphagia, unspecified (principal)
CPT/HCPCS: 74230; 92611